=== PATIENT | female | born 1970 | race Caucasian/White ===

== ENCOUNTER → 2017-09-19 13:48 | Outpatient (CLI) | payer MEDICARE, MEDICAID ==
[2016-03-31 14:19] VITALS: BMI 37.5
[~2017-09-19 13:48] MED LIST: AMBIEN10 MG PO; BAYER CHEWABLE81 MG PO; CYMBALTA30 MG PO; DALIRESP500 MCG PO; ELIQUIS5 MG PO; GABAPENTIN100 MG PO; HYDRALAZINE HCL25 MG PO; HYDROCODON-ACE1 EAC7 PO; IMDUR30 MG PO; ISOSORBIDE MONO60 M1 PO; KEPPRA500 MG PO; LAMICTAL ODT25 MG PO; LAMICTAL100 MG PO; LANTUS INSULIN10 ML SC; LANTUS SOL100 UNIT/1 SQ; LISINOPRIL2.5 MG PO; LOPRESSOR25 MG PO; METOPROLOL TART50 MG PO; OMEPRAZOLE20 M1 PO; OXYCODONE HCL5 MG PO; PLAVIX75 MG PO; PRILOSEC20 MG PO; PROAIR HFA8.5 GM INH; SEROQUEL300 MG PO; VICTOZA0.6 MG/0.1 SQ; XARELTO20 MG PO
== END | disposition home or self-care (01) ==
LOC: D.MRI 13:48
DX: M54.16 Radiculopathy, lumbar region (principal)

== ENCOUNTER 2018-05-08 07:44 | Outpatient (CLI) | payer MEDICARE, MEDICAID ==
[~2018-05-08] VITALS: Ht 157.5 cm; Wt 97.3 kg
--- NOTE | ~2018-05-08 | OP ---
PATIENT NAME: SYBIL PEÑA MEDICAL RECORD: [id number] :66 LOCATION:D.CAT ADMISSION DATE: SURGEON: SAI SIBLEY MD DATE OF OPERATION: 05/08/2018 PROCEDURES: 1. PTCA stent LAD. 2. Intravascular ultrasound. 3. Left heart catheterization. 4. Selective coronary angiography. 5. Left ventriculogram. INDICATION: Angina and coronary artery disease. PROCEDURE IN DETAIL: After informed consent was obtained and after a detailed explanation of risks, benefits as well as alternative therapies, the patient elected to proceed with angiogram and angioplasty. The right femoral area was prepped and draped in normal sterile fashion. Right femoral artery was cannulated via modified Seldinger technique with placement of 6-Bermudian sheath. All catheters exchanged through this sheath. FINDINGS: The left ventriculogram was performed in standard 30-degree AGUILAR view, reveals good cardiac wall motion throughout all segments. Overall ejection fraction estimated 60%. SELECTIVE CORONARY ANGIOGRAPHY: 1. Left main is with no significant angiographic disease. 2. Left anterior descending has 80% stenosis throughout the mid vessel confirmed by intravascular ultrasound. 3. Left circumflex has mild irregularities, but no flow-limiting stenosis. 4. Right coronary has mild irregularities, but no flow-limiting stenosis. PTCA STENT OF THE LAD: The stent used was a 2.75 x 26 mm Geronimo taken to 17 atmospheres. Result was 0% residual stenosis. OVERALL IMPRESSION: Successful PTCA stent of the left anterior descending going from greater than 75% initial stenosis to 0% residual. TRANSINT:[id number] Voice Confirmation ID: [id number] DOCUMENT ID: [id number] SAI SIBLEY MD at 1925 CC: [id number] DICTATION DATE: 05/08/18 1105 EARLY CHILDHOOD LEAD TEACHER: 05/08/18 1133 DEP CLI 05/08/18 [id number] [place] [address]
--- NOTE | ~2018-05-08 | HEMODYNAMI ---
PATIENT:SYBIL PEÑA MEDICAL RECORD: [id number] : 66 LOCATION:DBenitoCAT ADMISSION DATE: 05/08/18 Generatedon:05/08/201811:08 Patient name: SYBIL PEÑA Patient #: [id number] SSN: : 1970 Date of study: 05/08/2018 Page: Of Hemodynamic Procedure Report Patient Data Patient Demographics Procedure consent was obtained First Name: SYBIL Gender: Female Last Name: CASEY : 1970 [facility] Initial: M Age: 47 year(s) Patient #: [id number] Race: Additional ID: [id number] Contact details Address: [address] [place] [address] State: [place] City: [place] Zip code: [address] Past Medical History History of disease Date Diagnosis Comments CAD Allergies Allergen Reaction Date Comments Reported Other allergy 03/30/2016 ibuprofen Other allergy 03/31/2016 ibuprofen Other allergy 05/08/2018 IBUPROFEN Admission Admission Data Admission Date: 05/08/2018 Admission Time: 7:44 Height (in.): 62 BSA: 1.97 (m2) Height (cm.): 157.48 BMI: 39.14 (kg/m2) Weight (lbs.): 214 Weight (kg.): 97.07 Lab Results Lab Result Date: 05/08/2018 Lab Result Time: 0:00 Biochemistry Name Units Result Min Max BUN mg/dl 12 --(-*--)-- 7 18 Creatinine mg/dl 0.8 --(-*--)-- 0.6 1.3 CBC Name Units Result Min Max Hemoglobin g/dl 11.2 *-(----)-- 13.5 17.5 Procedure Procedure Types Cath Procedure Diagnostic Procedure [facility] w/Coronaries FFR/IVUS Intra-Coronary IVUS Initial Sedation Charges Moderate Sedation up to 15 minutes PCI Procedure Coronary Stent Coronary Stent Initial Procedure Description Procedure Date Procedure Date: 05/08/2018 Procedure Start Time: 10:48 Procedure End Time: 11:04 Procedure Staff Name Function Tyshawn Hall MD Performing Physician Helen Ureña RT Monitor Beto Arellano RT Scrub Tasia Carlson RN Nurse Samir Stein RT Feather Drying Machine Operator Procedure Data Cath Procedure Fluoroscopy Diagnostic fluoroscopy Total fluoroscopy Time: 3.4 time: 3.4 min min Diagnostic fluoroscopy Total fluoroscopy dose: 673 dose: 673 mGy mGy Contrast Material Contrast Material Type Amount (ml) Isovue 300 101 Entry Location Entry Primary Successful Side Size Upsize Upsize Entry Closure Succes sful Closure Location (Fr) 1 (Fr) 2 (Fr) Remarks Device Remarks Femoral Right 5 Fr 6 Fr Exoseal artery Short Estimated blood loss: 10 ml Diagnostic catheters Device Type Used For End Catheter Placement MULTIPACK Pigtail 5 Fr Procedure catheter MULTIPACK JL 4.0 5Fr Procedure catheter MULTIPACK 3DRC 5Fr Procedure catheter Procedure Complications No complications Procedure Medications Medication Administration Route Dosage 0.9% NaCl I.V. bolus 100 ml/hr Oxygen etCO2 Nasal cannula 2 l/min Lidocaine 2% added to field 20 Heparin Flush Bag added to field 2 bags (1000units/500ml NS) Versed I.V. 2 mg Fentanyl I.V. 100 mcg Versed I.V. 2 mg Fentanyl I.V. 100 mcg Versed I.V. 2 mg Fentanyl I.V. 100 mcg Heparin Bolus I.V. 4000 units Integrilin (Bolus I.V. 9 ml 2mg/ml) Plavix P.O. 600 mg Versed I.V. 2 mg Hemodynamics Rest BSA: 1.97 (m2) HGB: 11.2 (g/dl) O2 Consumption: Estimated: 200.92 (ml/min) O2 Co nsumption indexed: Estimated:101.99 (ml/min/m) Heart Rate: 80 (bpm) Snapshots Pre Cath Intra NCS Post Cath Vital Signs Time Heart Resp SPO2 NIBP (mmHg) Rhythm Pain Sedation Rate (ipm) (%) Status Level (bpm) 10:02:43 80 21 98 124/67(101) NSR 0 (11) 10(A) , No pain 10:07:11 80 18 99 126/68(98) NSR 0 (11) 10(A) , No pain 10:11:39 80 22 99 127/63(94) NSR 0 (11) 10(A) , No pain 10:17:30 84 19 99 120/70(94) NSR 0 (11) 10(A) , No pain 10:21:54 85 18 98 123/68(92) NSR 0 (11) 10(A) , No pain 10:26:20 84 22 98 119/67(89) NSR 0 (11) 10(A) , No pain 10:30:42 84 20 99 122/71(98) NSR 0 (11) 10(A) , No pain 10:35:04 86 19 100 118/72(101) NSR 0 (11) 10(A) , No pain 10:39:31 85 27 96 112/63(90) NSR 0 (11) 10(A) , No pain 10:43:53 83 28 96 117/67(94) NSR 0 (11) 10(A) , No pain 10:48:13 86 24 98 118/70(96) NSR 0 (11) 10(A) , No pain 10:52:35 87 23 94 127/75(95) NSR 0 (11) 10(A) , No pain 10:57:01 92 22 94 123/72(93) NSR 0 (11) 10(A) , No pain 11:01:26 93 24 96 124/72(104) NSR 0 (11) 10(A) , No pain Medications Time Medication Route Dose Verified Delivered Reason Notes Effectiveness by by 10:01:39 0.9% NaCl I.V. 100 Tyshawn Tasia used for bolus ml/hr Isabel Carlson fine sander 10:01:47 Oxygen etCO2 2 Tyshawn Tasia used for Nasal l/min Isabel Carlson procedure cannula RN 10:01:54 Lidocaine 2% added 20ml Tyshawn Tyshawn for local to vial Isabel Hall MD anesthetic field 10:02:02 Heparin Flush added 2 Tyshawn Tyshawn used for Bag to bags Isabel Hall MD procedure (1000units/500ml field NS) 10:42:39 Versed I.V. 2 mg Tyshawn Tasia for sedation Isabel Carlson RN 10:42:45 Fentanyl I.V. 100 Tyshawn Tasia for sedation mcg Isabel Carlson RN 10:47:01 Versed I.V. 2 mg Tyshawn Tasia for sedation Isabel Carlson RN 10:47:10 Fentanyl I.V. 100 Tsyhawn Tasia for sedation mcg Isabel Carlson RN 10:52:26 Versed I.V. 2 mg Tyshawn Tasia for sedation Isabel Carlson RN 10:52:39 Fentanyl I.V. 100 Tyshawn Tasia for sedation mcg Isabel Carlson RN 10:55:57 Heparin Bolus I.V. 4000 Tyshawn Tasia for verif ied units Isabel Carlson anticoagulation with Dr. STEPHY Hall 10:57:53 Versed I.V. 2 mg Tyshawn Tasia for sedation Isabel Carlson RN 10:59:08 Integrilin I.V. 9 ml Tyshawn Tasia for waste d (Bolus 2mg/ml) Isabel Carlson anticoagulation 1mL RN 10:59:47 Plavix P.O. 600 Tyshawn Tasia for mg Isabel Carlson antiplatelet RN therapy Procedure Log Time Note 9:43:17 Time tracking: Regular hours (M-F 7:00 - 5:00) 9:43:23 Plan of Care:Hemodynamics will remain stable., Cardiac rhythm will remain stable., Comfort level will be maintained., Respiratory function will remain adequate., Patient/ family verbilizes understanding of procedure., Procedure tolerated without complication., Recovers from procedure without complications.. 9:43:25 Signed procedure consent form obtained from patient. 9:43:26 Diagnostic Cath status Elective 9:43:34 Patient Height : 62 inches 9:43:37 Patient Weight : 214 lbs 9:43:51 H&P Date Dictated: 05/03/2018 Within 30 days and on chart., H&P Addendum completed by physician on day of procedure. (MUST COMPLETE FOR ALL OUTPATIENTS). 9:44:07 Patient allergic to Other allergyIBUPROFEN 9:50:03 Samir Stein RT(R) sent for patient. Start room use. 9:57:00 Patient received from Pre/Post Procedure Room to CCL 1 Alert and oriented. Tansferred to table in Supine position. 9:57:01 Warm blankets applied, and jose hugger turned on for patient comfort. 9:57:02 Correct patient and procedure confirmed by team. 9:57:02 ECG and BP/O2 sat monitors applied to patient. 10:01:19 Vital chart was started 10:01:39 0.9% NaCl 100 ml/hr I.V. bolus was administered by Tasia Carlson RN; used for procedure; 10:01:47 Oxygen 2 l/min etCO2 Nasal cannula was administered by Tasia Carlson RN; used for procedure; 10:01:54 Lidocaine 2% 20ml vial added to field was administered by Tyshawn Hall MD; for local anesthetic; 10:02:02 Heparin Flush Bag (1000units/500ml NS) 2 bags added to field was administered by Tyshawn Hall MD; used for procedure; 10:05:21 etCO2 monitor malfunction, HEATHER etCO2 at this time 10:07:06 Baseline sample Acquired. 10:07:15 Rhythm: sinus rhythm 10:07:16 Full Disclosure recording started 10:07:18 Pre-procedure instructions explained to patient. 10:07:19 Pre-op teaching completed and patient verbalized understanding. 10:07:21 Family in patients room. 10:07:22 Patient NPO since Midnight. 10:07:30 Is patient on blood thinner?No 10:07:32 Patient diabetic? Yes. 10:07:33 If diabetic: On Metformin? No 10:08:29 HCG/Urine : completed and on chart 10:09:07 Previous problem with sedation/anesthesia? No ? 10:09:08 Snore? No 10:09:09 Sleep apnea? No 10:09:10 Deviated septum? No 10:09:11 Opens mouth fully? Yes 10:09:27 Sticks out tongue? Yes 10:09:32 Airway obstruction? Yes COPD 10:09:35 Dentures? No ? 10:09:39 Pre procedure: right dorsailis pedis pulse 2+ Normal; easily identifiable; not easily obliterated 10:09:42 Patient pain scale 0/10 ?. 10:09:46 IV patent on arrival in left antecubital with 0.9% NaCl at [facility]. 10:11:12 Lab Result : BUN 12 mg/dl 10:11:12 Lab Result : Hemoglobin 11.2 g/dl 10:11:12 Lab Result : Creatinine 0.8 mg/dl 10:11:15 Lab results completed and on chart. 10::21 Right groin area was prepped with chlora-prep and draped in sterile fashion 10::22 Alarms reviewed by R. N. 10:11:22 Sharps counted by scrub and verified by R.N. 10:11:32 Use device set Femoral Dx 10:11:33 ACIST Syringe (50587) opened to sterile field. 10:11:33 Bag Decanter (2002S) opened to sterile field. 10:11:35 ACIST Hand Control (67162) opened to sterile field. 10:11:35 ACIST Manifold (40050) opened to sterile field. 10:11:36 Tegaderm 4 x 4 (1626W) opened to sterile field. 10:11:38 Medline Cath Pack ([id number]) opened to sterile field. 10:11:39 DIAGNOSTIC WIRE .035 260cm J wire (426421) opened to sterile field. 10:11:40 DIAGNOSTIC Multipack 5Fr catheter set (DA4604) opened to sterile field. 10:11:47 SHEATH 5FR [facility] (RYT728) opened to sterile field. 10:16:48 Zero performed for pressure channel P1 10:42:15 --------ALL STOP TIME OUT------ 10:42:16 Final Timeout: patient, procedure, and site verified with staff and physician. All members of the team are in agreement. 10:42:17 Right groin site verified by team. 10:42:19 Physical assessment completed. ASA score P 2 - A patient with mild systemic disease as per Tyshawn Hall MD. 10:42:21 Sedation plan: IV Moderate Sedation Medication:Versed, Fentanyl 10:42:39 Versed 2 mg I.V. was administered by Tasia Carlson RN; for sedation; 10:42:45 Fentanyl 100 mcg I.V. was administered by Tasia Carlson RN; for sedation; 10:47:01 Versed 2 mg I.V. was administered by Tasia Carlson RN; for sedation; 10:47:05 Procedure started. 10:47:10 Fentanyl 100 mcg I.V. was administered by Tasia Carlson RN; for sedation; 10:48:25 Local anesthetic to right femoral artery with Lidocaine 2% by Tyshawn Hall MD.INITIAL ACCESS ONLY 10:49:27 A 5 Fr sheath was inserted into the Right Femoral artery 10:49:50 A MULTIPACK Pigtail 5 Fr catheter was advanced over the wire and used for Procedure. 10:49:53 LV gram done using AGUILAR 10:50:01 Injector settings: Ml/sec: 10, Volume: 20, 10:50:23 EF : 60 % 10:50:25 Catheter removed. 10:50:32 A MULTIPACK JL 4.0 5Fr catheter was advanced over the wire and used for Procedure. 10:51:37 LCA angiography performed. 10:51:46 Catheter removed. 10:51:50 A MULTIPACK 3DRC 5Fr catheter was advanced over the wire and used for Procedure. 10:52:26 Versed 2 mg I.V. was administered by Tasia Carlson RN; for sedation; 10:52:34 RCA angiography performed. 10:52:35 Catheter removed. 10:52:39 Fentanyl 100 mcg I.V. was administered by Tasia Carlson RN; for sedation; 10:52:42 GUIDE 6FR XBLAD 4.0 catheter ([id number]) opened to sterile field. 10:52:47 CHOICE PT Extra Support 182cm wire ([id number]) opened to sterile field. 10:52:52 SHEATH 6FR [facility] (NQU181) opened to sterile field. 10:52:56 INFLATOR Merit BasixCompak (NF6658) opened to sterile field. 10:53:10 Sheath upsized to a 6 Fr Short. 10:53:37 [place] IVUS Catheter (25543B) opened to sterile field. 10:53:50 6 Fr XBLAD 4 guide catheter was inserted over the wire 10:54:35 UNABLE TO ENGAGE LCA CATHETER REMOVED 10:54:47 GUIDE 6FR XBLAD 3.5 catheter (89837163) opened to sterile field. 10:54:55 6 Fr XBLAD 3.5 guide catheter was inserted over the wire 10:55:54 CHOICE ES 182 wire advanced. 10:55:57 Heparin Bolus 4000 units I.V. was administered by Tasia Carlson RN; for anticoagulation; verified with Dr. Hall 10:57:22 IVUS catheter advanced over wire. 10:57:24 IVUS pass to LAD lesion performed. 10:57:24 IVUS catheter removed over wire. 10:57:53 Versed 2 mg I.V. was administered by Tasia Carlson RN; for sedation; 10:59:08 Integrilin (Bolus 2mg/ml) 9 ml I.V. was administered by Tasia Carlson RN; for anticoagulation; wasted 1mL 10:59:47 Plavix 600 mg P.O. was administered by Tasia Carlson RN; for antiplatelet therapy; 11:00:26 Place stent Inflation Number: 1 A TAMMIE RX 2.75 x 26 stent ([id number]) was prepped and advanced across the Mid LAD. The stent was deployed at 17 NOAH for 0:10 (min:sec). 11:00:55 Stent catheter was removed intact over wire. 11:00:56 Wire removed. 11:00:58 Guide catheter removed. 11:01:28 EXOSEAL 6Fr (EX600) opened to sterile field. 11:01:36 Sheath removed intact; hemostasis achieved with Exoseal to the Right Femoral artery. 11:01:39 Procedure ended.(Physican Out) 11:02:42 Fluoroscopy time 03.40 minutes. 11:02:47 Fluoroscopy dose: 673 mGy 11:02:47 Flurop Dose total: 673 11:02:51 Contrast amount:Isovue 300 101ml. 11:02:53 Sharps counted by scrub and verified by R.N. 11:02:59 Post-op/insertion site Right Femoral artery dressed using a 4 x 4 and Tegaderm. 11:03:02 Post right femoral artery:stable, soft, clean and dry 11:03:05 Post-procedure physical assessment completed. ASA score P 2 - A patient with mild systemic disease as per Tyshawn Hall MD. 11:03:07 Post procedure rhythm: sinus rhythm 11:03:09 Estimated blood loss: 10 ml 11:03:11 Post procedure instruction explained to patient.Patient verbalizes understanding. 11:03:11 Patient needs reinforcement of post procedure teaching. 11:03:35 Procedure type changed to Cath procedure, Diagnostic procedure, LHC, LHC w/Coronaries, FFR/IVUS, Intra-Coronary IVUS Initial, Sedation Charges, Moderate Sedation up to 15 minutes, PCI procedure, Coronary Stent, Coronary Stent Initial 11:04:03 Procedure and supply charges have been captured, reviewed, submitted and are correct. 11:04:05 Procedure Complication : No complications 11:04:06 Vital chart was stopped 11:04:07 See physician's report for complete and final results. 11:04:09 Report given to Pre/Post Procedure Room. 11:04:12 Patient transfered to Pre/Post Procedure Room with Bed. 11:04:18 Procedure ended. 11:04:18 Full Disclosure recording stopped 11:04:21 End room use (Document Last) Intervention Summary Intervention Notes Time ActionType Lesion and Equipment Used Action# Pressure Duration Attributes 11:00:26 Place stent Mid LAD TAMMIE RX 2.75 x 1 17 00:10 26 stent ([id number]) Device Usage Item Name Manufacture Quantity Catalog Number Hospital Part Current M inimal Lot# / Charge Number Stock Stock Serial# Code ACIST Syringe Acist 1 91050 612217 327479 077044 2 0 (31241) Medical Systems Inc Bag Decanter Microtek 1 2001S 886389 92204 105295 5 (2001S) Medical Inc. ACIST Hand Acist 1 72597 544484 602025 888978 5 Control Medical (23186) Systems Inc ACIST Manifold Acist 1 69737 489444 649391 341425 5 (25176) Medical Systems Inc Tegaderm 4 x 4 3M 1 1626W 581635 476620 855004 5 (1626W) Medline Cath Medline 1 [id number] 884879 05859 179383 5 Pack ([id number]) DIAGNOSTIC [place] 1 813973 898423 825633 268949 3 0 WIRE .035 260cm J wire (681346) DIAGNOSTIC Cardinal 1 QG7464 748632 18196 171372 3 0 Multipack 5Fr Health catheter set (IT4531) SHEATH 5FR Terumo 1 JSJ754 943963 868602 674214 4 0 [facility] (URI077) MULTIPACK Cardinal 1 386087 5 Pigtail 5 Fr Health catheter MULTIPACK JL Cardinal 1 703190 5 4.0 5Fr Health catheter MULTIPACK 3DRC Cardinal 1 755765 5 5Fr catheter Health GUIDE 6FR Cardinal 1 [id number] 598355 571019 376290 3 XBLAD 4.0 Health catheter (97132094) CHOICE PT [place] 1 [id number] 273501 354536 568783 5 Extra Support Scientific 182cm wire ([id number]) SHEATH 6FR Terumo 1 WWF257 213643 327704 152877 4 0 [facility] (GJA944) INFLATOR Merit Merit 1 FR0683 253759 229118 530281 1 5 [facility] (GC0263) [place] 1 93906X 174498 411431 512756 8 [place] IVUS Catheter (34120E) GUIDE 6FR Cardinal 1 77526619 380227 820195 476198 1 0 XBLAD 3.5 Health catheter (86166840) TAMMIE RX 2.75 x Medtronic 1 [id number] 031911 9492191 905005 5 [id number] 26 stent ([id number]) EXOSEAL 6Fr Cardinal 1 EX600 001853 517227 876654 1 0 (EX600) Health Signature Audit [place] Stage Time Signature Unsigned Intra-Procedure 05/08/2018 Helen Ureña 11:08:05 AM RT(R) Signatures Monitor : Helen Ureña Signature : RT Date : Time : [id number] [place] [address]
[2018-05-08] MEDS ORDERED: ZOFRAN ODT4 MG/UDTAB PO (08:37)
[2018-05-08] MEDS ORDERED: DULERA 200 MCG8.8 GM INH (08:37)
[2018-05-08] MEDS ORDERED: BASAGLAR K100 UNIT/1 SC (08:37)
[2018-05-08] MEDS ORDERED: SINGULAIR10 MG PO (08:38)
[2018-05-08] MEDS ORDERED: ELIQUIS5 MG PO (08:38)
[2018-05-08 08:44] VITALS: BP 145/64; Ht 157.5 cm; Wt 97.3 kg
[2018-05-08 09:01] LABS: HEMATOCRIT 34.8 % (36.0-48.0); HEMOGLOBIN 11.2 g/dL (12-16); MCH 27.6 pg (26.0-34.0); MCHC 32.2 g/dL (31.0-37.0); MCV 85.7 fL (80.0-100.0); PLATELET COUNT 135 10x3/uL (130-400); RBC 4.06 10x6/uL (4.00-5.40); RDW 20.6 % (11.5-14.5); WBC 2.7 10x3/uL (4.8-10.8)
[2018-05-08 09:13] LABS: CALC OSMOLALITY 289 mosm/kg (275-300); CALCIUM 8.8 mg/dL (8.5-10.1); CARBON DIOXIDE 27.2 mmol/L (21.0-32.0); CHLORIDE - SERUM 102 mmol/L (98-107); CREATININE - SERUM 0.8 mg/dL (0.6-1.3); SODIUM 137 mmol/L (136-145); UREA NITROGEN 12 mg/dL (7-18); eGFR NON AFRICAN AMERICAN 81 mL/min (90-120)
[2018-05-08 09:15] LABS: GLUCOSE 391 mg/dL (74-106); HCG SERUM NEGATIVE (NEGATIVE); POTASSIUM - SERUM 5.2 mmol/L (3.5-5.1)
[2018-05-08 09:58] LABS: LYMPHOCYTES 22 % (15-50); MONOCYTES 5 % (2-11); NEUTROPHILS 66 % (40-80); PLATELET ESTIMATE NORMAL
[2018-05-08] MEDS ORDERED: PLAVIX75 MG PO (11:26)
== END 2018-05-08 15:15 | disposition home or self-care (01) ==
LOC: D.CATH 07:44
PROVIDERS: Internal Medicine Interventional Cardiology
DX: I25.119 Atherosclerotic heart disease of native coronary artery with unspecified angina pectoris (principal)
CPT/HCPCS: 93458; 92978; C9600

== ENCOUNTER 2018-11-23 22:57 | Emergency (ER) | payer MEDICARE, MEDICAID ==
[~2018-11-23 22:57] MED LIST changes: +BASAGLAR K100 UNIT/1 SC; +DULERA 200 MCG8.8 GM INH; +SINGULAIR10 MG PO; +ZOFRAN ODT4 MG/UDTAB PO
[2018-11-23 23:00] VITALS: BMI 38.8
[2018-11-23 23:53] LABS: BASOPHILS 1.1 % (0-2); EOSINOPHILS 0.7 % (0-7); HEMATOCRIT 41.1 % (36.0-48.0); HEMOGLOBIN 14.3 g/dL (12-16); IMMATURE GRANULOCYTES 1.1 % (0-5); LYMPHOCYTES 17.8 % (15-50); MCH 27.7 pg (26.0-34.0); MCHC 34.8 g/dL (31.0-37.0); MCV 79.7 fL (80.0-100.0); NEUTROPHILS 72.3 % (40-80); PLATELET COUNT 144 10x3/uL (130-400); RBC 5.16 10x6/uL (4.00-5.40); RDW 20.2 % (11.5-14.5); WBC 4.6 10x3/uL (4.8-10.8)
[2018-11-24 00:07] LABS: ALBUMIN 4.2 g/dL (3.4-5.0); ALKALINE PHOSPHATASE 67 U/L (46-116); ALT (SGPT) 25 U/L (10-68); BILIRUBIN - TOTAL 0.91 mg/dL (0.2-1.3); CALC OSMOLALITY 276 mosm/kg (275-300); CALCIUM 9.2 mg/dL (8.5-10.1); CARBON DIOXIDE 27.4 mmol/L (21.0-32.0); CHLORIDE - SERUM 94 mmol/L (98-107); CREATININE - SERUM 0.8 mg/dL (0.6-1.3); POTASSIUM - SERUM 4.2 mmol/L (3.5-5.1); SODIUM 133 mmol/L (136-145); UREA NITROGEN 14 mg/dL (7-18); eGFR NON AFRICAN AMERICAN 80 mL/min (90-120)
[2018-11-24 00:15] LABS: GLUCOSE 278 mg/dL (74-106)
[2018-11-24 00:18] LABS: APPEARANCE CLOUDY (CLEAR); BACTERIA FEW /hpf (NONE SEEN); BILIRUBIN NEGATIVE (NEGATIVE); COLOR YELLOW (YELLOW); EPITHELIAL CELLS 0-5 /hpf (0-5); GLUCOSE 1000 mg/dL (NEGATIVE); KETONE LARGE mg/dL (NEGATIVE); NITRITE NEGATIVE (NEGATIVE); PROTEIN TRACE mg/dL (NEGATIVE); RED CELLS - URINE 0-5 /hpf (0-5); SPECIFIC GRAVITY 1.025 (1.005-1.020); UROBILINOGEN NORMAL (NORMAL); WHITE CELLS - URINE 0-5 /hpf (0-5)
[2018-11-24 00:19] LABS: HCG SERUM NEGATIVE (NEGATIVE)
[2018-11-24 00:54] LABS: BASOPHILS 2 % (0-2); EOSINOPHILS 1 % (0-7); LYMPHOCYTES 19 % (15-50); MONOCYTES 4 % (2-11); NEUTROPHILS 72 % (40-80)
[2018-11-24 00:55] LABS: ELLIPTOCYTES OCC; TEAR DROP CELLS 1+
[2018-11-24 00:58] LABS: HYPOCHROMASIA OCC; PLATELET ESTIMATE DECREASED; PLATELET MORPHOLOGY GIANT PLTS PRESENT
[2018-11-24] MEDS ORDERED: ZOFRAN ODT4 MG/UDTAB PO (02:12)
[2018-11-24] MEDS ORDERED: TORADOL10 MG PO (02:12)
[2018-11-24 02:23] VITALS: BP 145/85
== END 2018-11-24 02:24 | disposition home or self-care (01) ==
LOC: D.ER 22:57
PROVIDERS: Family Medicine
DX: R16.0 Hepatomegaly, not elsewhere classified (principal); R16.1 Splenomegaly, not elsewhere classified

== ENCOUNTER 2018-11-25 23:21 | Emergency (ER) | payer MEDICARE, MEDICAID ==
[~2018-11-25] VITALS: Ht 157.5 cm; Wt 75.0 kg
[~2018-11-25 23:21] MED LIST changes: +TORADOL10 MG PO
[2018-11-25 23:26] VITALS: Ht 157.5 cm; Wt 75.0 kg
[2018-11-26] MEDS ORDERED: HYDROCODON-ACE1 EA10 PO (03:03)
[2018-11-26 03:34] VITALS: BP 100/67
== END 2018-11-26 03:33 | disposition home or self-care (01) ==
LOC: D.ER 23:21
DX: M54.16 Radiculopathy, lumbar region (principal); M54.5 Low back pain

== ENCOUNTER → 2018-12-07 09:55 | Outpatient (CLI) | payer MEDICARE, MEDICAID ==
[2018-11-25 23:26] VITALS: BMI 30.2
[~2018-12-07 09:55] MED LIST changes: +HYDROCODON-ACE1 EA10 PO
== END | disposition home or self-care (01) ==
LOC: D.MRI 09:55
PROVIDERS: ATTEND Nurse Practitioner Family
DX: M54.16 Radiculopathy, lumbar region (principal)

== ENCOUNTER 2018-12-07 10:28 | Emergency (ER) | payer MEDICARE, MEDICAID ==
[~2018-12-07] VITALS: Ht 157.5 cm; Wt 100.5 kg
[2018-12-07 10:32] VITALS: BP 124/86; Ht 157.5 cm; Wt 100.5 kg
== END 2018-12-07 12:08 | disposition home or self-care (01) ==
LOC: D.ER 10:28
DX: M54.16 Radiculopathy, lumbar region (principal)

== ENCOUNTER → 2018-12-11 12:34 | Outpatient (CLI) | payer MEDICARE, MEDICAID ==
[2018-12-07 10:32] VITALS: BMI 40.5
== END | disposition home or self-care (01) ==
LOC: D.MRI 12:34
PROVIDERS: ATTEND Nurse Practitioner Family
DX: M54.16 Radiculopathy, lumbar region (principal)

== ENCOUNTER 2019-06-29 08:36 | Outpatient (CLI) | payer MEDICARE, MEDICAID ==
[~2019-06-29] VITALS: Ht 157.5 cm; Wt 90.0 kg
--- NOTE | ~2019-06-29 | OP ---
PATIENT NAME: SYBIL PEÑA MEDICAL RECORD: [id number] :66 LOCATION:D.CAT ADMISSION DATE: SURGEON: SAI SIBLEY MD DATE OF OPERATION: 06/29/2019 PROCEDURES: 1. PTCA stent RCA. 2. Left heart catheterization. 3. Selective coronary angiography. 4. Left ventriculogram. INDICATION: Angina and coronary artery disease. PROCEDURE IN DETAIL: After informed consent was obtained and after a detailed description of risks, benefits as well as alternative therapies, the patient elected to proceed with angiogram and angioplasty. The right femoral area was prepped and draped in normal sterile fashion. Right femoral artery was cannulated via modified Seldinger technique with placement of 6-Kisw[place]ili sheath. All catheters exchanged through this sheath. FINDINGS: The left ventriculogram performed in standard 30-degree AGUILAR view, reveals good cardiac wall motion, ejection fraction estimated 60%. SELECTIVE CORONARY ANGIOGRAPHY: 1. Left main is with no significant angiographic disease. 2. Left anterior descending has previously placed stent that is widely patent with no significant restenosis. No disease elsewise throughout the LAD or its branches. 3. Left circumflex has moderate irregularities, but no flow-limiting stenosis. 4. The right coronary has previously placed stents, these are widely patent; however, the PDA that takes off in the previously placed stent has 95% stenosis. PTCA STENT OF THE RCA PDA: The stent used was a 2.0 x 8 mm [place]. Result was 0% residual stenosis. OVERALL IMPRESSION: Successful percutaneous transluminal coronary angioplasty stent of the right coronary artery going from 95% initial stenosis to 0% residual. TRANSINT:[id number] Voice Confirmation ID: [id number] DOCUMENT ID: [id number] SAI SILBEY MD CC: [id number] DICTATION DATE: 06/29/19 1201 EXTERMINATOR HELPER TERMITE: 06/29/19 1822 DEP CLI 06/29/19 [id number] [place] [address]
--- NOTE | ~2019-06-29 | HEMODYNAMI ---
PATIENT:SYBIL PEÑA MEDICAL RECORD: [id number] : 66 LOCATION:[facility] ADMISSION DATE: 06/29/19 Generatedon:06/29/201912:02 Patient name: SYBIL PEÑA Patient #: [id number] SSN: : 1970 Date of study: 06/29/2019 Page: Of Hemodynamic Procedure Report Patient Data Patient Demographics Procedure consent was obtained First Name: SYBIL Gender: Female Last Name: CASEY : 1970 Middle Initial: M Age: 48 year(s) Patient #: [id number] Race: Additional ID: [id number] Contact details [address]: [address] [place] [address] State: [place] City: [place] Zip code: [address] Past Medical History History of disease Date Diagnosis Comments CAD Allergies Allergen Reaction Date Comments Reported Other allergy 03/30/2016 ibuprofen Other allergy 03/31/2016 ibuprofen Other allergy 05/08/2018 IBUPROFEN Admission Admission Data Admission Date: 06/29/2019 Admission Time: 8:36 Height (in.): 62 BSA: 1.91 (m2) Height (cm.): 157.48 BMI: 36.29 (kg/m2) Weight (lbs.): 198.42 Weight (kg.): 90 Lab Results Lab Result Date: 06/29/2019 Lab Result Time: 0:00 Biochemistry Name Units Result Min Max BUN mg/dl 16 --(---*)-- 7 18 Creatinine mg/dl 0.8 --(-*--)-- 0.6 1.3 eGFR ml/min 79.18556 *-(----)-- 90 120 NONAFRICAN CBC Name Units Result Min Max Hemoglobin g/dl 11.1 *-(----)-- 13.5 17.5 Procedure Procedure Types Cath Procedure Diagnostic Procedure LHC [facility] w/Coronaries Sedation Charges Moderate Sedation up to 15 minutes PCI Procedure Coronary Stent Coronary Stent Initial Hemochron ACT Test Procedure Description Procedure Date Procedure Date: 06/29/2019 Procedure Start Time: 11:42 Procedure End Time: 11:58 Procedure Staff Name Function Tyshawn Hall MD Performing Physician Nolan Doherty RT Monitor Wilson Mckenna RN Nurse Jannie Jones RT Scrub Procedure Data Cath Procedure Fluoroscopy Diagnostic fluoroscopy Total fluoroscopy Time: 3.6 time: 3.6 min min Diagnostic fluoroscopy Total fluoroscopy dose: dose: 269.45 mGy 269.45 mGy Contrast Material Contrast Material Type Amount (ml) Isovue 300 92 Entry Location Entry Primary Successful Side Size Upsize Upsize Entry Closure Succes sful Closure Location (Fr) 1 (Fr) 2 (Fr) Remarks Device Remarks Femoral Right 5 Fr 6 Fr Exoseal artery Short Estimated blood loss: 10 ml Diagnostic catheters Device Type Used For End Catheter Placement MULTIPACK Pigtail 5 Fr Procedure catheter MULTIPACK JL 4.0 5Fr Procedure catheter MULTIPACK 3DRC 5Fr Procedure catheter Procedure Complications No complications Procedure Medications Medication Administration Route Dosage 0.9% NaCl I.V. 100 ml/hr Oxygen etCO2 Nasal cannula 2 l/min Heparin Flush Bag added to field 2 bags (1000units/500ml NS) Lidocaine 2% added to field 20 Versed I.V. 2 mg Fentanyl I.V. 100 mcg Versed I.V. 2 mg Fentanyl I.V. 100 mcg Versed I.V. 2 mg Heparin Bolus I.V. 4000 units Plavix P.O. 75 mg Hemodynamics Rest BSA: 1.91 (m2) HGB: 11.1 (g/dl) O2 Consumption: Estimated: 193.92 (ml/min) O2 Co nsumption indexed: Estimated:101.53 (ml/min/m) Heart Rate: 80 (bpm) Pressure Samples Time Site Value (mmHg) Purpose Heart Use Rate(bpm) 11:44 AO 114/63(84) Snapshot 92 Snapshots Pre Cath Intra NCS Post Cath Vital Signs Time Heart Resp SPO2 etCO2 NIBP (mmHg) Rhythm Pain Sedation Rate (ipm) (%) (mmHg) Status Level (bpm) 10:30:42 89 27 99 27.7 131/74(107) NSR 0 (11) 10(A) , No pain 10:35:00 90 25 99 24.7 129/76(100) NSR 0 (11) 10(A) , No pain 10:46:02 95 32 98 24 139/85(106) NSR 0 (11) 10(A) , No pain 10:50:18 93 39 97 16.5 134/84(101) NSR 0 (11) 10(A) , No pain 10:54:40 98 33 98 27.7 122/56(82) NSR 0 (11) 10(A) , No pain 10:58:52 93 26 98 24.7 134/83(106) NSR 0 (11) 10(A) , No pain 11:03:10 98 28 98 35.2 132/79(112) NSR 0 (11) 10(A) , No pain 11:07:28 95 36 98 19.5 128/76(100) NSR 0 (11) 10(A) , No pain 11:11:42 93 36 97 22.4 128/79(101) NSR 0 (11) 10(A) , No pain 11:15:54 95 40 95 21.7 124/79(101) NSR 0 (11) 10(A) , No pain 11:20:08 92 34 96 21.7 125/72(98) NSR 0 (11) 10(A) , No pain 11:24:22 92 32 97 18.7 122/77(98) NSR 0 (11) 10(A) , No pain 11:28:36 92 32 98 26.9 130/79(100) NSR 0 (11) 10(A) , No pain 11:32:50 94 29 95 17.9 130/74(99) NSR 0 (11) 10(A) , No pain 11:37:02 92 29 97 26.9 126/78(102) NSR 0 (11) 10(A) , No pain 11:41:15 93 13 98 27.7 136/80(106) NSR 0 (11) 10(A) , No pain 11:45:29 93 28 97 24.7 129/78(100) NSR 0 (11) 10(A) , No pain 11:49:43 93 35 96 25.4 125/72(104) NSR 0 (11) 10(A) , No pain 11:53:59 91 36 97 26.9 130/71(99) NSR 0 (11) 10(A) , No pain 11:58:12 93 28 97 23.2 134/79(99) NSR 0 (11) 10(A) , No pain Medications Time Medication Route Dose Verified Delivered Reason Notes E ffectiveness by by 10:34:10 0.9% NaCl I.V. 100 Wilson Wilson Per ml/hr Clarisa Mckenna physician RN RN 10:34:23 Oxygen etCO2 2 Wilson Wilson for low 02 Nasal l/min Clarisa Mckenna sats cannula RN RN 10:34:33 Heparin Flush added 2 Wilson Wilson used for Bag to bags Clarisa Mckenna procedure (1000units/500ml field RN RN NS) 10:34:43 Lidocaine 2% added 20ml Wilson Wilson for local to vial Clarisa Mckenna anesthetic field RN RN 11:42:21 Versed I.V. 2 mg Wilson Wilson for sedation Clarisa Mckenna RN RN 11:42:29 Fentanyl I.V. 100 Wilson Wilson for sedation mcg Clarisa Mckenna RN RN 11:43:37 Versed I.V. 2 mg Wilson Wilson for sedation Clarisa Mckenna RN RN 11:43:49 Fentanyl I.V. 100 Wilson Wilson for sedation mcg Clarisa Mckenna RN RN 11:45:18 Versed I.V. 2 mg Wilson Wilson for sedation Clarisa Mckenna RN RN 11:50:21 Heparin Bolus I.V. 4000 Wilson Wilson for units Clarisa Mckenna antiplatelet RN RN therapy 11:57:30 Plavix P.O. 75 mg Wilson Wilson for Clarisa Mckenna antiplatelet RN RN therapy Procedure Log Time Note 18:40:47 Is patient on blood thinner?Yes 10:16:00 Wilson Mckenna RN sent for patient. Start room use. 10:16:00 Time tracking: Regular hours (M-F 7:00 - 5:00) 10:16:05 Plan of Care:Hemodynamics will remain stable., Cardiac rhythm will remain stable., Comfort level will be maintained., Respiratory function will remain adequate., Patient/ family verbilizes understanding of procedure., Procedure tolerated without complication., Recovers from procedure without complications.. 10:23:26 Patient received from Pre/Post Procedure Room to CCL 3 Alert and oriented. Tansferred to table in Supine position. 10:23:29 Signed procedure consent form obtained from patient. 10:23:29 Warm blankets applied, and jose hugger turned on for patient comfort. 10:23:30 Correct patient and procedure confirmed by team. 10:23:31 ECG and BP/O2 sat monitors applied to patient. 10:29:32 Vital chart was started 10:34:10 0.9% NaCl 100 ml/hr I.V. was administered by Wilson Mckenna RN; Per physician; Verbal order read back and verified. 10:34:23 Oxygen 2 l/min etCO2 Nasal cannula was administered by Wilson Mckenna RN; for low 02 sats; Verbal order read back and verified. 10:34:33 Heparin Flush Bag (1000units/500ml NS) 2 bags added to field was administered by Wilson Mckenna RN; used for procedure; Verbal order read back and verified. 10:34:43 Lidocaine 2% 20ml vial added to field was administered by Wilson Mckenna RN; for local anesthetic; Verbal order read back and verified. 10:35:50 Rhythm: sinus rhythm 10:35:52 Full Disclosure recording started 10:36:01 H&P Date Dictated: 06/28/2019 Within 30 days and on chart.. 10:36:02 Pre-procedure instructions explained to patient. 10:36:02 Pre-op teaching completed and patient verbalized understanding. 10:36:09 Family in waiting room. 10:36:10 Patient NPO since Midnight. 10:36:13 Is the patient allergic to Iodine/contrast media? No. 10:36:18 ACC The patient was administered the following blood thiners within the last 24 hours: ACCPlavix 10:36:24 Patient diabetic? Yes. 10:36:24 If diabetic: On Metformin? Yes 10:36:29 If on Metformin: Last Dose? 06/28/2019 10:36:33 Baseline sample Acquired. 10:36:38 Previous problem with sedation/anesthesia? No ? 10:36:41 Snore? Yes 10:36:42 Sleep apnea? No 10:36:43 Deviated septum? No 10:36:44 Opens mouth fully? Yes 10:36:44 Sticks out tongue? Yes 10:36:49 Airway obstruction? Yes COPD 10:36:56 Dentures? No ? 10:37:20 Pre procedure: right dorsailis pedis pulse 1+ Palpable, but thready & weak; easily obliterated 10:37:22 Patient pain scale 0/10 ?. 10:37:25 Lab results completed and on chart. 10:45:09 Risk of Mortality: 0.1 10:45:12 Risk of blood transfusion: 2.7 10:45:15 Risk of ANDRE: 1.2 10:49:23 Right groin area was prepped with chlora-prep and draped in sterile fashion 10:49:25 Alarms reviewed by R. N. 10:49:25 Sharps counted by scrub and verified by R.N. 10:50:16 Lab Result : Creatinine 0.8 mg/dl 10:50:16 Lab Result : BUN 16 mg/dl 10:50:16 Lab Result : eGFR NONAFRICAN 79.62601 ml/min 10:50:16 Lab Result : Hemoglobin 11.1 g/dl 10:50:34 Patient Height : 62 inches 10:50:42 Patient Weight : 198.42 lbs 11:16:10 Case delayed due to Physician working in 2.. 11:16:47 Pt resting comfortably.. 11:40:16 Physician arrived 11:40:16 --------ALL STOP TIME OUT------ 11:40:17 Final Timeout: patient, procedure, and site verified with staff and physician. All members of the team are in agreement. 11:40:18 Right groin site verified by team. 11:40:21 Fire Safety Assessment: A--An alcohol-based skin anteseptic being used preoperatively., C--Open oxygen or nitrous oxide is being used., D--An ESU, laser, or fiber-optic light is being used. 11:40:24 Physical assessment completed. ASA score P 2 - A patient with mild systemic disease as per Tyshawn Hall MD. 11:40:27 2) 60-89 Mildly reduced kidney function, and other findings (as for stage 1) point to kidney disease. 11:40:30 Maximum allowable contrast dose (3.7 X eGFR X 0.75)222 ml. 11:40:34 Sedation plan: IV Moderate Sedation Medication:Versed, Fentanyl 11:41:49 Use device set Femoral Dx 11:41:51 ACIST Manifold (93233) opened to sterile field. 11:41:53 ACIST Hand Control (21865) opened to sterile field. 11:41:53 Tegaderm 4 x 4 (1626W) opened to sterile field. 11:41:55 ACIST Syringe (87991) opened to sterile field. 11:41:56 Bag Decanter (2002S) opened to sterile field. 11:41:57 Medline Cath Pack ([id number]) opened to sterile field. 11:41:59 DIAGNOSTIC Multipack 5Fr catheter set (GM4598) opened to sterile field. 11:42:01 SHEATH 5FR [place] (IWK861) opened to sterile field. 11:42:02 EMERALD Guide Wire (649-064) opened to sterile field. 11:42:08 Procedure started. 11:42:19 Local anesthetic to right femoral artery with Lidocaine 2% by Tyshawn Hall MD.INITIAL ACCESS ONLY 11:42:21 Versed 2 mg I.V. was administered by Wilson Mckenna RN; for sedation; Verbal order read back and verified. 11:42:29 Fentanyl 100 mcg I.V. was administered by Wilson Mckenna RN; for sedation; Verbal order read back and verified. 11:42:56 A 5 Fr sheath was inserted into the Right Femoral artery 11:43:37 Versed 2 mg I.V. was administered by Wilson Mckenna RN; for sedation; Verbal order read back and verified. 11:43:47 A MULTIPACK Pigtail 5 Fr catheter was advanced over the wire and used for Procedure. 11:43:49 Fentanyl 100 mcg I.V. was administered by Wilson Mckenna RN; for sedation; Verbal order read back and verified. 11:43:54 LV angiography performed. 11:43:55 LV gram done using AGUILAR 11:44:00 EF : 60 % 11:44:07 Injector settings: Ml/sec: 5, Volume: 15, 11:44:21 Catheter removed. 11:44:26 A MULTIPACK JL 4.0 5Fr catheter was advanced over the wire and used for Procedure. 11:45:15 LCA angiography performed. 11:45:18 Versed 2 mg I.V. was administered by Wilson Mckenna RN; for sedation; Verbal order read back and verified. 11:45:32 Catheter removed. 11:45:37 A MULTIPACK 3DRC 5Fr catheter was advanced over the wire and used for Procedure. 11:46:25 RCA angiography performed. 11:46:27 ACCDominant side:Right 11:46:50 Catheter removed. 11:46:56 Use device set [facility] PCI 11:46:58 SHEATH 6FR [place] (RUU815) opened to sterile field. 11:47:03 INFLATOR Merit BasixCompak (CF4072) opened to sterile field. 11:47:16 CHOICE PT Extra Support J 300cm guide wire ([id number]) opened to sterile field. 11:49:01 GUIDE 6FR AR 2.0 SH catheter (LC2MP6ND) opened to sterile field. 11:49:42 Sheath upsized to a 6 Fr Short. 11:49:50 6 Fr AR 2 SH guide catheter was inserted over the wire 11:49:58 Pre PCI Site: [place] PDA has 95% stenosis. 11:50:00 ACC Pre-intervention [place]ANTON Flow is 3. 11:50:21 Heparin Bolus 4000 units I.V. was administered by Wilson Mckenna RN; for antiplatelet therapy; Verbal order read back and verified. 11:50:31 CPTXS 300 wire advanced. 11:51:20 Wire advanced across lesion. 11:51:51 Inflate balloon Inflation number: 1 A EMERGE OTW 1.5 x 15 balloon ([id number]) was prepped and advanced across the R PDA 95, then inflated to 21 NOAH for 0:10 (min:sec) . 11:52:21 Balloon removed over the wire. 11:53:59 Place stent Inflation Number: 2 A TAMMIE RX 2.0 x 8 stent ([id number]) was prepped and advanced across the R PDA 95. The stent was deployed at 13 NOAH for 0:10 (min:sec) 0. 11:54:13 Stent catheter was removed intact over wire. 11:54:14 Wire removed. 11:54:14 Guide catheter removed. 11:54:20 Post PCI Site: [place] PDA has 0% stenosis. 11:54:23 ACC Post-intervention [place] Flow is 3. 11:55:01 EXOSEAL 6Fr (EX600) opened to sterile field. 11:55:12 Sheath removed intact; hemostasis achieved with Exoseal to the Right Femoral artery. 11:55:15 Procedure ended.(Physican Out) 11:56:46 Fluoroscopy time 03.60 minutes. 11:56:51 Fluoroscopy dose: 269.45 mGy 11:56:51 Flurop Dose total: 269.45 11:56:55 Dose Area Product 1765.62 mGy/cm. 11:57:00 Contrast amount:Isovue 300 92ml. 11:57:02 Maximum allowable dose exceeded? No. 11:57:03 Sharps counted by scrub and verified by R.N. 11:57:05 Insertion/operative site no bleeding no hematoma. 11:57:08 Post-op/insertion site Right Femoral artery dressed using a 4 x 4 and Tegaderm. 11:57:09 Post Procedure Pulses reassessed and unchanged 11:57:11 Post-procedure physical assessment completed. ASA score P 2 - A patient with mild systemic disease as per Tyshawn Hall MD. 11:57:13 Post procedure rhythm: unchanged. 11:57:16 Estimated blood loss: 10 ml 11:57:17 Post procedure instruction explained to patient.Patient verbalizes understanding. 11:57:17 Patient needs reinforcement of post procedure teaching. 11:57:29 Procedure type changed to Cath procedure, Diagnostic procedure, LHC, C w/Coronaries, Sedation Charges, Moderate Sedation up to 15 minutes, PCI procedure, Coronary Stent, Coronary Stent Initial, Hemochron ACT Test 11:57:30 Plavix 75 mg P.O. was administered by Wilson Mckenna RN; for antiplatelet therapy; Verbal order read back and verified. 11:57:52 Procedure and supply charges have been captured, reviewed, submitted and are correct. 11:57:55 Procedure Complication : No complications 11:58:04 ACT drawn and resulted at 172 seconds. (normal therapeutic range 180-240 seconds). 11:58:09 Vital chart was stopped 11:58:11 [facility] Findings: MVD- PCI performed (see procedure note) 11:58:12 Operative report dictated upon procedure completion. 11:58:12 See physician's report for complete and final results. 11:58:15 Report given to Pre/Post Procedure Room. 11:58:17 Patient transfered to Pre/Post Procedure Room with Stretcher. 11:58:34 Procedure ended. 11:58:34 Full Disclosure recording stopped 12:01:54 End room use (Document Last) Intervention Summary Intervention Notes Time ActionType Lesion and Equipment Used Action# Pressure Duration Attributes 11:51:51 Inflate R PDA EMERGE OTW 1.5 1 21 00:10 balloon x 15 balloon ([id number]) 11:53:59 Place stent R PDA TAMMIE RX 2.0 x 2 13 00:10 8 stent ([id number]) Device Usage Item Name Manufacture Quantity Catalog Number Hospital Part Current Minimal Lot# / Charge Number Stock Stock Serial# Code ACIST Manifold Acist 1 90340 875301 190605 392181 5 (88662) Medical Systems Inc ACIST Hand Acist 1 79101 550905 125052 307720 5 Control Medical (62179) Systems Inc Tegaderm 4 x 4 3M 1 1626W 108668 208636 611505 5 (1626W) ACIST Syringe Acist 1 23558 616244 371602 057017 20 (54863) Medical Systems Inc Bag Decanter Microtek 1 2002S 016378 03653 510627 5 (2001S) Medical Inc. Medline Cath Medline 1 [id number] 208317 89308 236471 5 Pack ([id number]) DIAGNOSTIC Cardinal 1 CH0862 471873 48514 708245 30 Multipack 5Fr Health catheter set (TP7923) SHEATH 5FR Terumo 1 SGN752 424169 908810 402659 5 [place] (PFD931) EMERALD Guide Cardinal 1 502-455 984244 404388 895777 5 Wire (502-455) Health MULTIPACK Cardinal 1 640789 5 Pigtail 5 Fr Health catheter MULTIPACK JL Cardinal 1 110713 5 4.0 5Fr Health catheter MULTIPACK 3DRC Cardinal 1 858425 5 5Fr catheter Health SHEATH 6FR Terumo 1 GRL545 449102 057085 211892 40 [place] (DYB925) INFLATOR Merit Merit 1 IA9455 343468 768702 811762 15 Spreadshirt Medical (TK3837) CHOICE PT [place] 1 [id number] 131818 5 Extra Support Scientific J 300cm guide wire ([id number]) GUIDE 6FR AR Medtronic 1 [id number] 865873 98732 746859 1 2.0 SH catheter ([id number]) EMERGE OTW 1.5 [place] 1 [id number] 424289 874866 383226 5 [id number] x 15 balloon Scientific ([id number]) TAMMIE RX 2.0 x Medtronic 1 [id number] 402148 3848461 066009 5 [id number] 8 stent ([id number]) EXOSEAL 6Fr Cardinal 1 EX600 254998 506077 270762 10 (EX600) Health Signature Audit [place] Stage Time Signature Unsigned Intra-Procedure 06/29/2019 Nolan Doherty 11:58:48 AM RT(R) Intra-Procedure 06/29/2019 Wilson 11:59:26 AM Clarisa KEYES Intra-Procedure 06/29/2019 Tyshawn Hall 12:02:14 PM [facility] [address] [place] [address]
[2019-06-29] MEDS ORDERED: AMBIEN10 MG PO (09:44)
[2019-06-29] MEDS ORDERED: PRAVACHOL20 MG PO (09:45)
[2019-06-29] MEDS ORDERED: DULERA 100 MCG8.8 GM INH (09:46)
[2019-06-29] MEDS ORDERED: DALIRESP500 MCG PO (09:48)
[2019-06-29] MEDS ORDERED: PLAVIX75 MG PO (09:50)
[2019-06-29] MEDS ORDERED: TOUJEO SOL300 UNIT/1 SC (09:52)
[2019-06-29] MEDS ORDERED: NOVOLOG100 UNIT/1 SC (09:53)
[2019-06-29] MEDS ORDERED: ZOFRAN4 MG PO (09:54)
[2019-06-29] MEDS ORDERED: NITROQUICK0.4 MG SL (09:55)
[2019-06-29] MEDS ORDERED: LISINOPRIL2.5 MG PO (09:56)
[2019-06-29] MEDS ORDERED: PREVACID30 MG PO (09:56)
[2019-06-29] MEDS ORDERED: FERROUS SULFAT325 MG PO (09:56)
[2019-06-29] MEDS ORDERED: GLIMEPIRIDE2 MG PO (09:57)
[2019-06-29] MEDS ORDERED: DEPAKOTE500 MG PO ×2 (09:58)
[2019-06-29 10:00] VITALS: BP 131/68; Ht 157.5 cm; Wt 90.0 kg
[2019-06-29 10:03] LABS: BASOPHILS 0.8 % (0-2); EOSINOPHILS 1.1 % (0-7); HEMATOCRIT 33.2 % (36.0-48.0); HEMOGLOBIN 11.1 g/dL (12-16); IMMATURE GRANULOCYTES 0.8 % (0-5); LYMPHOCYTES 20.6 % (15-50); MCH 27.8 pg (26.0-34.0); MCHC 33.4 g/dL (31.0-37.0); MEAN PLATELET VOLUME 10.5 fL (7.4-10.4); MONOCYTES 5.6 % (2-11); NEUTROPHILS 71.1 % (40-80); RDW 20.7 % (11.5-14.5); WBC 3.6 10x3/uL (4.8-10.8)
[2019-06-29 10:04] LABS: PLATELET COUNT 183 10x3/uL (130-400)
[2019-06-29 10:20] LABS: ALT (SGPT) 20 U/L (10-68); CALC OSMOLALITY 291 mosm/kg (275-300); CALCIUM 9.4 mg/dL (8.5-10.1); CARBON DIOXIDE 26.4 mmol/L (21.0-32.0); CHLORIDE - SERUM 100 mmol/L (98-107); CHOL - HDL RATIO 3.9 ratio (2.3-4.1); CHOLESTEROL, TOTAL 152 mg/dL (0-200); CREATININE - SERUM 0.8 mg/dL (0.6-1.3); HDL CHOLESTEROL 39 mg/dL (32-96); LDL CHOLESTEROL 71 mg/dL (0-100); LDL-HDL RATIO 1.8 ratio (1.5-3.5); POTASSIUM - SERUM 4.5 mmol/L (3.5-5.1); SODIUM 137 mmol/L (136-145); TRIGLYCERIDE 210 mg/dL (30-200); UREA NITROGEN 16 mg/dL (7-18); eGFR NON AFRICAN AMERICAN 80 mL/min (90-120)
[2019-06-29 10:23] LABS: GLUCOSE 404 mg/dL (74-106)
--- NOTE | 2019-06-29 12:15 | NUR ---
REC TO ROOM VIA STRETCHER FROM ETHNIC ORIGINS TEACHER. MONITORING INITIATED. R GROIN SOFT, CDI TEGADERM AND 4X4, NO S/S BLEEDING OR HEMATOMA. PPP. INSTR TO LIE FLAT, HEAD ON PILLOW AND RLE SSTRAIGHT AND RELAXED. REQ BEDPAN, ROLLED ON TO BEDPAN WITHOUT DISTURBING RLE W ASSIST OF STAFF. VOIDED 400CC CLEAR YELLOW URINE. ROLLED OFF MADRIGAL WITHOUT DISTURBING RLE W ASSIST OF STAFF X 2. HR 93 NSR, BP 129/74, RR 18, SAT 96% ON 2LNC. FAMILY AT BEDSIDE.
--- NOTE | 2019-06-29 12:45 | NUR ---
R GROIN CDI, SOFT. NO S/S BLEEDING/HEMATOMA. BP 133/70, HR 90. SAT 97% ON 2LNC. PPP. DAMILY AT BEDSIDE.
--- NOTE | 2019-06-29 13:15 | NUR ---
R GROIN DRESSING CDI, GROIN SOFT. NO S/S BLEEDING/HEMATOMA. PPP. HR 89,NSR.BP 152/77. SAT 97% ON 2LNC. FAMILY AT BEDSIDE.
--- NOTE | 2019-06-29 13:51 | NUR ---
R GROIN CDI, SOFT. NO S/S BLEEDING/HEMATOMA. PPP. HR 86,NSR. BP 125/74, RR 20, SAT 96% ON 1LNC.
--- NOTE | 2019-06-29 14:15 | NUR ---
R GROIN REMAINS SOFT, NO S/S BLEEDING/HEMATOMA. PPP. DRESSING R GROIN REPLACED DUE TO ORIGINAL DRESSING HAVING ISSUES W NONADHERENCE.
--- NOTE | 2019-06-29 14:45 | NUR ---
R GROIN SOFT, CDI. NO S/S BLEEDING/HEMATOMA.
--- NOTE | 2019-06-29 15:05 | NUR ---
ASSISTED ONTO BEDPAN. HOB SL ELEVATED. R GROIN CDI, SOFT. NO S/S BLEEDING/HEMATOMA.
--- NOTE | 2019-06-29 15:10 | NUR ---
VOIDED 400 CC CLEAR YELLOW URINE. HOB ELEVATED TO PT COMFORT, R GROIN REMAINS CDI, SOFT, NO S/S BLEEDING OR HEMATOMA. PROVIDED TURKEY SANDWICH, HAS SODA.
--- NOTE | 2019-06-29 15:35 | NUR ---
PIV DC TIP INTACT. MONITORING DC. PT DRESSING W HELP OF FRIEND.R GROIN REMAINS SOFT, CDI NO S/S BLEEDING/HEMATOMA.
--- NOTE | 2019-06-29 16:00 | NUR ---
DC INSTRUCTIONS REVIEWED INCL ADDITION OF PLAVIX TO DAILY MEDICATION REGIMEN. PT VERBALIZES UNDERSTANDING. HAS STENT CARD AND PLAVIX RX. DC HOME VIA WHEELCHAIR TO PRIVATE CAR W FRIEND. PT HAS ALL BELONGINGS.
== END 2019-06-29 16:00 ==
LOC: D.CATH 08:36
PROVIDERS: ATTEND Internal Medicine Interventional Cardiology
DX: I25.119 Atherosclerotic heart disease of native coronary artery with unspecified angina pectoris (principal); R06.09 Other forms of dyspnea; I10 Essential (primary) hypertension; E78.5 Hyperlipidemia, unspecified
CPT/HCPCS: 93458; C9600